=== PATIENT | male | born 1975 | race Caucasian/White ===

== ENCOUNTER 2021-08-08 17:58 | Emergency (ER) | payer OTHER, BC ==
[~2021-08-08 17:58] MED LIST: Iopamidol 370 76% 100 ML VIAL ONE
[2021-08-08 18:23] LABS: #Basophils 0.1 thou/uL (0.0-0.2); #Lymphocytes 1.4 thou/uL (1.20-3.40); #Monocytes 0.8 thou/uL (0.11-0.59); #Neutrophils 7.8 thou/uL (1.40-6.50); %Basophils 0.8 % (0.0-1.0); %Eosinophils 0.1 % (0.0-10.0); %Lymphocytes 13.8 % (21.0-51.0); %Monocytes 7.8 % (0.0-10.0); %Neutrophils 77.5 % (42.0-75.0); Hemoglobin 13.8 g/dL (14.0-18.0); Mean Corpuscular HGB CONC 34.1 g/dL (32.0-36.0); Mean Corpuscular Hemoglobin 34.5 pg (27.0-31.0); Mean Platelet Volume 6.3 fL (7.4-10.4); Platelet Count 355 thou/uL (130-400); RBC Distribution Width 12.1 % (11.5-14.5); Red Blood Cell (RBC) Count 4.01 mill/uL (4.70-6.10); White Blood Cell (WBC) Count 10.1 thou/uL (4.8-10.8)
[2021-08-08] MEDS ORDERED: Boostrix 0.5 ML (Tdap) VIAL ONE (18:28)
[2021-08-08] MEDS ORDERED: CEFAZOLIN 1 GM VIAL ONE (18:29)
[2021-08-08 18:45] LABS: ALT (SGPT) 19 U/L (8-55); AST (SGOT) 38 U/L (5-34); Albumin 4.3 g/dL (3.5-5.0); Alcohol 374 mg/dL (Less than 10); Alkaline Phosphatase 37 U/L (40-110); Anion Gap 17 mmol/L (10-20); BUN (Urea Nitrogen) 6 mg/dL (8.9-20.6); Bilirubin, Total 0.6 mg/dL (0.2-1.2); Calc. Creatinine Clearance 0 mL/min (70-130); Calcium 8.6 mg/dL (7.8-10.44); Carbon Dioxide 21 mmol/L (22-29); Chloride 96 mmol/L (98-107); Globulin 2.8 g/dL (2.4-3.5); Glucose 85 mg/dL (70-105); Potassium 3.6 mmol/L (3.5-5.1); Protein, Total 7.1 g/dL (6.0-8.3); Sodium 130 mmol/L (136-145)
[2021-08-08 18:46] LABS: Acetaminophen Less than 6.0 mcg/mL (10.0-30.0); Alcohol 370 mg/dL (Less than 10); CK (CPK) 305 U/L (30-200); Salicylate Less than 8.0 mg/dL (15.0-30.0)
[2021-08-08] MEDS ORDERED: Xylocaine 1% w/ Epi 1:100K 10 ML VIAL ONE (19:13)
[2021-08-08] MEDS ORDERED: Bacitracin 1 PK ONE (21:32)
== END 2021-08-08 21:44 | disposition home or self-care (01) ==
LOC: ERS 17:58
DX: S52.572A Other intraarticular fracture of lower end of left radius, initial encounter for closed fracture (principal); S21.111A Laceration without foreign body of right front wall of thorax without penetration into thoracic cavity, initial encounter; S00.01XA Abrasion of scalp, initial encounter; F10.129 Alcohol abuse with intoxication, unspecified; Y90.8 Blood alcohol level of 240 mg/100 ml or more; V47.5XXA Car driver injured in collision with fixed or stationary object in traffic accident, initial encounter
CPT/HCPCS: 12002; 29125; 70450; 71260; 72125; 74177; 80053; 80307; 82550; 85025; 90471; 90715; 96374; G0390; J0690; Q9967

== ENCOUNTER 2021-08-10 12:52 | Outpatient (CLI) | payer BC ==
[2021-08-11 11:10] LABS: SARS-CoV-2 PCR by NAA Not Detected (NotDetected)
== END 2021-08-10 12:53 | disposition home or self-care (01) ==
LOC: LABBT 12:52
PROVIDERS: ATTEND Orthopaedic Surgery
DX: Z01.812 Encounter for preprocedural laboratory examination (principal); S52.501A Unspecified fracture of the lower end of right radius, initial encounter for closed fracture; Z20.822 Contact with and (suspected) exposure to COVID-19
CPT/HCPCS: U0003; U0005

== ENCOUNTER 2021-08-18 13:22 | Emergency (ER) | payer BC ==
[2021-08-18] MEDS ORDERED: Bacitracin 1 PK ONE (15:18)
== END 2021-08-18 15:38 | disposition home or self-care (01) ==
LOC: ERS 13:22
DX: S21.111D Laceration without foreign body of right front wall of thorax without penetration into thoracic cavity, subsequent encounter (principal); X58.XXXD Exposure to other specified factors, subsequent encounter

== ENCOUNTER 2023-11-06 17:26 | Emergency (ER) | payer BC, OTHER ==
[2023-11-06] MEDS ORDERED: Fioricet 325/50/40 mg Tablet PO SCH (20:45)
[2023-11-06] MEDS ORDERED: Fioricet 325/50/40 mg Tablet ONE (21:19)
== END 2023-11-06 23:34 | disposition home or self-care (01) ==
LOC: ERS 17:26
DX: S06.0X0A Concussion without loss of consciousness, initial encounter (principal); F17.220 Nicotine dependence, chewing tobacco, uncomplicated; W07.XXXA Fall from chair, initial encounter; Y99.0 Civilian activity done for income or pay; Z55.6 Problems related to health literacy
CPT/HCPCS: 70450